=== PATIENT | male | born 1965 | race Caucasian/White ===

== ENCOUNTER → 2023-10-26 15:32 | Outpatient (REF) | payer OTHER, SELFPAY | LOC: RAD 15:32 | PROVIDERS: ATTENDING PHYSICIAN Physician Assistant Surgical; FAMILY PHYSICIAN Family Medicine | DX: T15.90XA Foreign body on external eye, part unspecified, unspecified eye, initial encounter (principal) | CPT/HCPCS: 70030 ==

== ENCOUNTER → 2024-06-05 13:30 | Outpatient (REF) | payer OTHER, SELFPAY | LOC: RAD 13:30 | PROVIDERS: ATTENDING PHYSICIAN Family Medicine | DX: R05.1 Acute cough (principal) | CPT/HCPCS: 71046 ==

== ENCOUNTER 2025-05-12 06:31 | Day surgery (SDC) | payer OTHER, SELFPAY ==
[2025-05-12] VITALS (13 sets, daily range): BP systolic 120–145; BP diastolic 71–90; BMI 24.3
[2025-05-12] MEDS: NSS 230 ML IV (07:00)
[2025-05-12 07:06] LABS: Glucose - Point of Care 101 mg/dl (70-99)
[2025-05-12 07:10] LABS: Hematocrit 44.6 % (39.0-52.0); Hemoglobin 15.7 g/dL (13.0-18.0); Mean Corp Hgb Conc. 35.2 g/dL (33.0-37.0); Mean Corpuscular Volume 87.6 fL (80.0-94.0); Platelet Count 251 10^3/uL (130-400); Red Cell Dist. Width 13.0 % (11.5-14.5)
[2025-05-12 07:28] LABS: ALT (SGPT) 32 U/L (0-50); AST (SGOT) 31 U/L (17-59); Albumin 4.6 g/dl (3.5-5.0); Alkaline Phosphatase 69 U/L (38-126); Blood Urea Nitrogen 12 mg/dl (9-20); Calcium 9.3 mg/dl (8.4-10.2); Carbon Dioxide 33 mmol/L (22-30); Chloride 102 mmol/L (98-107); Estimated Creatinine Clearance 114 ml/min; Glucose 96 mg/dl (70-99); Potassium 3.7 mmol/L (3.5-5.1); Sodium 138 mmol/L (135-145); Total Protein 7.2 g/dl (6.3-8.2); eGFR > 60.00
[2025-05-12] MEDS: LOW STRENGTH ASPIRIN 81 MG PO (07:31)
[2025-05-12] MEDS: NSS 1000 IV (08:30)
--- NOTE | 2025-05-12 15:52 | ITS.CL.CATH ---
[employer] - Catheterization
Cardiac Catheterization
Procedure Report:
LEFT HEART CATHETERIZATION
Date of Procedure: May 06, 2025
Referring: Dr. Magnus Douglas
PROCEDURES:
1. Left heart catheterization with coronary and single-plane left ventriculography
INDICATION: Palpitations with runs of nonsustained ventricular tachycardia on CAM monitoring
ACCESS: Right radial artery, 6 Irish sheath
HEMODYNAMICS : (mmHg)
AO (s/d) : 105/67
LV (s/d) : 114/7
LVEDP : 19
CORONARY FINDINGS
DOMINANCE: Right
LEFT MAIN: Normal
LEFT ANTERIOR DESCENDING: The LAD arises normally from the left main and runs in the anterior interventricular groove. The LAD has only minor irregularities over its course
RAMUS: Normal
CIRCUMFLEX: The circumflex is a large-caliber nondominant vessel that has only minor irregularities over its course
RIGHT CORONARY ARTERY: The right coronary artery is a medium caliber dominant vessel that is widely patent over its course
VENTRICULOGRAPHY: Left ventriculography is performed in an VILLAVICENCIO projection. The digital single-plane left ventricular ejection fraction is estimated at 55% and no regional wall motion abnormalities are noted
SEDATION: 36 minutes of procedural sedation was utilized. An independent medical social consultant was present to assist with and help manage the patient's level of consciousness and physiologic status.
RADIATION SUMMARY: Fluoro Time (min): 3.6, Dose (mGy): 298, DAP (Gy.cm2) : 20.5
Closure Device: TR band
CONCLUSIONS
1. Nonobstructive coronary disease
2. Preserved LV systolic function
RECOMMENDATIONS
1. Follow-up with Dr. Douglas as scheduled. Continue oral beta-jacob
Copy to: Dr. Magnus Douglas
== END 2025-05-12 11:23 | disposition home or self-care (01) ==
LOC: CATH 06:31
PROVIDERS: ATTENDING PHYSICIAN Internal Medicine Interventional Cardiology; FAMILY PHYSICIAN Family Medicine; OTHER PHYSICIAN Nuclear Medicine Nuclear Cardiology
DX: I25.10 Atherosclerotic heart disease of native coronary artery without angina pectoris (principal); I47.20 Ventricular tachycardia, unspecified; Z79.82 Long term (current) use of aspirin; Z79.899 Other long term (current) drug therapy; Z79.85 Long-term (current) use of injectable non-insulin antidiabetic drugs
CPT/HCPCS: 99152; 99153; 80053; 82962; 85027; 93458; C1769; C1894; Q9967

== ENCOUNTER → 2025-05-13 15:42 | Outpatient (REF) | payer OTHER, SELFPAY | LOC: HWRCS 15:42 | PROVIDERS: ATTENDING PHYSICIAN Nuclear Medicine Nuclear Cardiology; FAMILY PHYSICIAN Family Medicine | DX: I35.0 Nonrheumatic aortic (valve) stenosis (principal); I49.3 Ventricular premature depolarization; R94.31 Abnormal electrocardiogram [ECG] [EKG] | CPT/HCPCS: 93306 ==

== ENCOUNTER → 2025-05-28 08:36 | Outpatient (REF) | payer OTHER, SELFPAY | LOC: MRI 08:36 | PROVIDERS: ATTENDING PHYSICIAN Nuclear Medicine Nuclear Cardiology; FAMILY PHYSICIAN Family Medicine | DX: I10 Essential (primary) hypertension (principal); I35.0 Nonrheumatic aortic (valve) stenosis; I49.3 Ventricular premature depolarization; R00.0 Tachycardia, unspecified | CPT/HCPCS: 75561; 75565; A9585 ==